=== PATIENT | female | born 1975 | race Caucasian/White ===

== ENCOUNTER 2016-07-29 07:11 | Emergency (ER) | payer OTHER ==
[2016-07-29] MEDS ORDERED: Morphine INJ* 2 MG/ML 1 ML SYRINGE IV ONE (07:52)
[2016-07-29] MEDS ORDERED: NS 0.9% 1000 ML* 1,000 ML IV ONE (07:52)
[2016-07-29] MEDS ORDERED: Ondansetron INJ* 2 MG/ML VIAL IV ONE (07:52)
[2016-07-29 08:29] LABS: Hematocrit 39 % (35-47); Hemoglobin 12.9 g/dl (12.0-16.0); Mean Corpuscular HGB Conc 33 g/dl (31-36); Mean Corpuscular Hemoglobin 31 pg (27-31); Mean Corpuscular Volume 93 fL (80-97); Mean Platelet Volume 9 um3 (7.4-10.4); Red Blood Count 4.22 10^6/ul (4.0-5.4); Red Cell Distribution Width 13 % (10.5-15); White Blood Count 7.9 10^3/ul (3.5-10.8)
[2016-07-29 08:37] LABS: ALT 19 U/L (7-52); AST 21 U/L (13-39); Albumin 4.2 g/dL (3.2-5.2); Alkaline Phosphatase 37 U/L (34-104); Amylase 42 U/L (29-103); Anion Gap 7 mmol/L (2-11); BUN/Creatinine Ratio 16.5 (8-20); Blood Urea Nitrogen 16 mg/dL (6-24); C Reactive Protein 1.62 mg/L (< 5.00); CO2 Carbon Dioxide 22 mmol/L (22-32); Calcium 9.6 mg/dL (8.6-10.3); Chloride 107 mmol/L (101-111); EGFR African American 81.8 (>60); EGFR Non-African American 63.6 (>60); Globulin 2.7 g/dL (2-4); Glucose 113 mg/dL (70-100); Lipase 18 U/L (11.0-82.0); Magnesium 1.9 mg/dL (1.9-2.7); Potassium 4.3 mmol/L (3.5-5.0); Sodium 136 mmol/L (133-145); Total Protein 6.9 g/dL (6.4-8.9)
[2016-07-29] MEDS ORDERED: Morphine INJ* 4 MG/ML 1 ML SYRINGE IV ONE (08:57)
[2016-07-29] MEDS ORDERED: Iohexol 300* (CONTRAST) 10 ML SDV IV ONE (09:12)
[2016-07-29 10:06] LABS: Urine Bacteria Absent (Absent); Urine Bilirubin Negative (Negative); Urine Glucose Negative (Negative); Urine Nitrite Negative (Negative)
[2016-07-29] MEDS ORDERED: Ketorolac INJ* 30 MG/ML 1 ML VIAL IV PUSH ONE (10:17)
[2016-07-29] MEDS ORDERED: Ketorolac INJ* 30 MG/ML 1 ML VIAL ONE (10:19)
--- NOTE | 2016-07-29 10:34 | RAD ---
CLINICAL HISTORY: Right lower quadrant pain COMPARISON: July 21, 2011 TECHNIQUE: Multiple contiguous axial CT scans were obtained of the abdomen and pelvis after the administration of intravenous contrast. Coronal and sagittal multiplanar reformations are submitted for review. FINDINGS: LUNG BASES: The lung bases are clear. LIVER: The liver is diffusely low in attenuation compared to the spleen. There are no focal hepatic parenchymal masses. The liver measures 21 cm in long axis. BILE DUCTS: There is ectasia of the common duct. There is no intrahepatic biliary dilatation. GALLBLADDER: The gallbladder is not visualized. Surgical clips are noted in the gallbladder fossa. PANCREAS: The pancreas is normal, without mass or ductal dilatation. SPLEEN: Normal in size and appearance. UPPER GI TRACT: Evaluation of the gastrointestinal tract is limited by incomplete gastric distention. The upper GI tract is unremarkable. SMALL BOWEL AND MESENTERY: The small bowel is normal in contour, course, and caliber. There is no obstruction or dilatation. COLON: The colon is normal in contour, course, caliber. There is no pericolonic inflammatory change. There is a tubular, vermiform, hollow viscus that is blind ending, and originates from the cecum, consistent with a normal appendix. There is no periappendiceal inflammatory change. This is best seen on axial images 93 through 120. ADRENALS: Normal bilaterally. KIDNEYS: The kidneys are normal in shape, size, contour, and axis. There is no hydronephrosis or nephrolithiasis. BLADDER: The bladder is smooth in contour. PELVIC ORGANS: There is a 7 cm cyst of the right hemipelvis measuring simple fluid in attenuation. This is persistent from the July 21, 2011 examination. There is prominence of the vasculature along the broad ligament on the left with enlargement of the left compatible vein. There is focal enhancement of the uterine body on the left suggestive of a fibroid. AORTA: The aorta is normal. IVC: Unremarkable LYMPH NODES: There is no lymphadenopathy by size criteria. ABDOMINAL WALL: There is no evidence for abdominal wall hernia. BONES AND SOFT TISSUES: The bones and soft tissues are unremarkable. OTHER: None IMPRESSION: 1. NORMAL APPENDIX. 2. 7 CM CYST OF THE RIGHT HEMIPELVIS. THIS IS PERSISTENT FROM THE 2011 EXAMINATION. GIVEN THE PERSISTENCE, A CYSTADENOMA OR CYSTADENOCARCINOMA IS WITHIN THE DIFFERENTIAL. RECOMMEND CONSIDERATION OF GYNECOLOGIC CONSULTATION AND TISSUE SAMPLING. 3. HEPATOMEGALY WITH FATTY INFILTRATION OF LIVER. 4. DILATED LEFT GONADAL VEINS WITH INCREASED VASCULARITY ALONG THE BROAD LIGAMENT ON THE LEFT. WHILE THIS NONSPECIFIC, THIS CAN BE SEEN IN ASSOCIATION WITH PELVIC CONGESTION SYNDROME.
--- NOTE | 2016-07-29 12:10 | RAD ---
HISTORY: Right lower quadrant pain COMPARISONS: Ultrasound dated May 21, 2015, CT dated July 29, 2016 TECHNIQUE: Multiple transverse and longitudinal ultrasound images were obtained of the pelvis using grayscale, color Doppler, and spectral Doppler imaging using the transabdominal transducer. FINDINGS: UTERUS: The uterus measures 10.9 x 3.8 x 5.5 cm. There is a fibroid of the posterior body of the left corresponding to the lesion noted on CT, measuring 1.8 cm in maximum dimension. ENDOMETRIUM: The endometrial stripe is smooth. The endometrium measures 0.4 cm in thickness. CUL-DE-SAC: There is no free fluid within the cul-de-sac. RIGHT OVARY: The right ovary measures 9.5 x 4.9 x 6.5 cm. There is a multiseptated cyst of the right ovary measuring 6.6 x 4.6 x 5.5, increased in size from 5.2 cm on the previous examination. ] A moderate flow LEFT OVARY: The left ovary measures 3.1 x 1.8 x 2.6 cm. Normal arterial and venous waveforms are identifiable within the ovary on spectral Doppler imaging. BLADDER: The bladder is not well visualized. IMPRESSION: 1. FIBROID UTERUS. 2. NOTED ON CT, THERE IS A COMPLICATED CYST OF THE RIGHT OVARY, MEASURING UP TO 6.6 CM IN SIZE, INCREASED SIZE FROM THE MAY 21, 2015 ULTRASOUND EXAMINATION AND PERSISTENT FROM PREVIOUS CT EXAMINATIONS FAR BACK 2011. RECOMMEND CONSIDERATION OF THE PEDICLES CONSULTATION AND POSSIBLE TISSUE SAMPLING
--- NOTE | 2016-07-29 12:46 | ED ---
Kathia Murguia SooYoung, scribed for Juan Daniel Szymanski MD on 07/29/16 at 0722 . Abdominal Pain/Female - HPI Summary HPI Summary: A 41 y/o F presents to ED with c/o acute RLQ abd pain onset yesterday afternoon approx 1700. Associated sx: n/v. Denies fever, chills. Pain is sharp, non- radiating, and rated as an 8-9 out of 10. LNMP: currently menstruating. Pt has a known R ovarian cyst but states it doesn't feel like that's the cause. She's had similar sx prev but it always faded after about an hour before. Currently taking amoxicillin for a tooth infection. Pt is a non-smoker, non-drinker, non- drug user. - History of Current Complaint Chief Complaint: EDAbdPain Stated Complaint: LOWER RT ABD PAIN Hx Obtained From: Patient, Family/Active Directory Specialist - PRESENT Onset/Duration: Sudden Onset, Lasting Hours, Still Present Timing: Constant Severity Initially: Moderate Severity Currently: Severe Pain Intensity: 8 Pain Scale Used: 0-10 Numeric Location: Discrete At: RLQ Radiates: No Character: Sharp Associated Signs and Symptoms: Positive: Nausea, Vomiting. Negative: Fever Allergies/Adverse Reactions: Allergies Allergy/AdvReac Type Severity Reaction Status Date / Time Ciprofloxacin Allergy Nausea Verified 03/18/16 09:59 Clavulanic Acid Allergy Nausea Verified 03/18/16 09:59 [From Augmentin] PMH/Surg Hx/FS Hx/Imm Hx Previously Healthy: No History: Reports: Other Problems/Disorders - OVARIAN CYST, UTERINE FIBROIDS - Surgical History Surgery Procedure, Year, and Place: CHOLECYSTECTOMY Infectious Disease History: No Infectious Disease History: Denies: Traveled Outside the [place] in Last 30 Days - Family History Known Family History: Positive: Other - APPY - Social History Occupation: Employed Full-time Lives: With Family Alcohol Use: None Hx Substance Use: No Substance Use Type: Reports: None Hx Tobacco Use: No Smoking Status (MU): Never Smoked Tobacco Review of Systems Negative: Fever, Chills Positive: Abdominal Pain, Vomiting, Nausea All Other Systems Reviewed And Are Negative: Yes Physical Exam - Summary Physical Exam Summary: VITAL SIGNS: Reviewed. GENERAL: Patient is a well-developed and nourished female who is lying comfortable in the stretcher. Patient is not in any acute respiratory distress. HEAD AND FACE: Normocephalic and atraumatic. EYES: PERRLA, EOMI x 2, No injected conjunctiva. EARS: Hearing grossly intact. Ear canals and tympanic membranes are WNL. MOUTH: Oropharynx within normal limits. NECK: Supple, trachea is midline, no adenopathy, no JVD. CHEST: Symmetric, no tenderness at palpation LUNGS: Clear to auscultation bilaterally. No wheezing or crackles. CVS: RRR, S1 and S2 present, no murmurs or gallops appreciated. ABDOMEN: Soft. No signs of distention. Positive bowel sounds. No rebound, no guarding, and no masses palpated. No abdominal bruit or pulsations. RLQ TENDERNESS. EXTREMITIES: FROM in all major joints, no edema, no cyanosis or clubbing. NEURO: Alert and oriented x 3. No acute neurological deficits. Speech is normal. SKIN: Dry and warm Triage Information Reviewed: Yes Vital Signs On Initial Exam: Initial Vitals Temp Pulse Resp BP Pulse Ox 97.9 F 62 16 167/83 100 07/29/16 07:12 07/29/16 07:12 07/29/16 07:12 07/29/16 07:12 07/29/16 07:12 Vital Signs Reviewed: Yes Diagnostics - Vital Signs Vital Signs Temp Pulse Resp BP Pulse Ox 07/29/16 07:12 97.9 F 60 16 167/83 100 - Laboratory Lab Results: Lab Results 07/29/16 07/29/16 07/29/16 Range/Units 08:08 08:08 08:08 WBC 7.9 (3.5-10.8) 10^3/ul RBC 4.22 (4.0-5.4) 10^6/ul Hgb 12.9 (12.0-16.0) g/dl Hct 39 (35-47) % MCV 93 (80-97) fL MCH 31 (27-31) pg MCHC 33 (31-36) g/dl RDW 13 (10.5-15) % Plt Count 181 (150-450) 10^3/ul MPV 9 (7.4-10.4) um3 Neut % (Auto) 77.1 (38-83) % Lymph % (Auto) 15.7 L (25-47) % Stafford % (Auto) 6.3 (1-9) % Eos % (Auto) 0.4 (0-6) % Baso % (Auto) 0.5 (0-2) % Absolute Neuts (auto) 6.1 (1.5-7.7) 10^3/ul Absolute Lymphs (auto) 1.2 (1.0-4.8) 10^3/ul Absolute Monos (auto) 0.5 (0-0.8) 10^3/ul Absolute Eos (auto) 0 (0-0.6) 10^3/ul Absolute Basos (auto) 0 (0-0.2) 10^3/ul Absolute Nucleated RBC 0.01 10^3/ul Nucleated RBC % 0.1 Sodium 136 (133-145) mmol/L Potassium 4.3 (3.5-5.0) mmol/L Chloride 107 (101-111) mmol/L Carbon Dioxide 22 (22-32) mmol/L Anion Gap 7 (2-11) mmol/L BUN 16 (6-24) mg/dL Creatinine 0.97 H (0.51-0.95) mg/dL Est GFR ( Amer) 81.8 (>60) Est GFR (Non-Af Amer) 63.6 (>60) BUN/Creatinine Ratio 16.5 (8-20) Glucose 113 H (70-100) mg/dL Lactic Acid 1.2 (0.5-2.0) mmol/L Calcium 9.6 (8.6-10.3) mg/dL Magnesium 1.9 (1.9-2.7) mg/dL Total Bilirubin 0.40 (0.2-1.0) mg/dL AST 21 (13-39) U/L ALT 19 (7-52) U/L Alkaline Phosphatase 37 (34-104) U/L C-Reactive Protein 1.62 (< 5.00) mg/L Total Protein 6.9 (6.4-8.9) g/dL Albumin 4.2 (3.2-5.2) g/dL Globulin 2.7 (2-4) g/dL Albumin/Globulin Ratio 1.6 (1-3) Amylase 42 (29-103) U/L Lipase 18 (11.0-82.0) U/L Beta HCG, Quant < 0.60 mIU/mL Urine Color Urine Appearance Urine pH (5-9) Ur Specific [place] (1.010-1.030) Urine Protein (Negative) Urine Ketones (Negative) Urine Blood (Negative) Urine Nitrate (Negative) Urine Bilirubin (Negative) Urine Urobilinogen (Negative) Ur Leukocyte Esterase (Negative) Urine WBC (Auto) (Absent) Urine RBC (Auto) (Absent) Urine Bacteria (Absent) Urine Glucose (Negative) Urine Ascorbic Acid (Negative) 07/29/16 Range/Units 09:39 WBC (3.5-10.8) 10^3/ul RBC (4.0-5.4) 10^6/ul Hgb (12.0-16.0) g/dl Hct (35-47) % MCV (80-97) fL MCH (27-31) pg MCHC (31-36) g/dl RDW (10.5-15) % Plt Count (150-450) 10^3/ul MPV (7.4-10.4) um3 Neut % (Auto) (38-83) % Lymph % (Auto) (25-47) % Stafford % (Auto) (1-9) % Eos % (Auto) (0-6) % Baso % (Auto) (0-2) % Absolute Neuts (auto) (1.5-7.7) 10^3/ul Absolute Lymphs (auto) (1.0-4.8) 10^3/ul Absolute Monos (auto) (0-0.8) 10^3/ul Absolute Eos (auto) (0-0.6) 10^3/ul Absolute Basos (auto) (0-0.2) 10^3/ul Absolute Nucleated RBC 10^3/ul Nucleated RBC % Sodium (133-145) mmol/L Potassium (3.5-5.0) mmol/L Chloride (101-111) mmol/L Carbon Dioxide (22-32) mmol/L Anion Gap (2-11) mmol/L BUN (6-24) mg/dL Creatinine (0.51-0.95) mg/dL Est GFR ( Amer) (>60) Est GFR (Non-Af Amer) (>60) BUN/Creatinine Ratio (8-20) Glucose (70-100) mg/dL Lactic Acid (0.5-2.0) mmol/L Calcium (8.6-10.3) mg/dL Magnesium (1.9-2.7) mg/dL Total Bilirubin (0.2-1.0) mg/dL AST (13-39) U/L ALT (7-52) U/L Alkaline Phosphatase (34-104) U/L C-Reactive Protein (< 5.00) mg/L Total Protein (6.4-8.9) g/dL Albumin (3.2-5.2) g/dL Globulin (2-4) g/dL Albumin/Globulin Ratio (1-3) Amylase (29-103) U/L Lipase (11.0-82.0) U/L Beta HCG, Quant mIU/mL Urine Color Yellow Urine Appearance Clear Urine pH 5.0 (5-9) Ur Specific [place] 1.013 (1.010-1.030) Urine Protein Negative (Negative) Urine Ketones Trace H (Negative) Urine Blood 1+ H (Negative) Urine Nitrate Negative (Negative) Urine Bilirubin Negative (Negative) Urine Urobilinogen Negative (Negative) Ur Leukocyte Esterase Negative (Negative) Urine WBC (Auto) Trace(0-5/hpf) (Absent) Urine RBC (Auto) 2+(6-10/hpf) H (Absent) Urine Bacteria Absent (Absent) Urine Glucose Negative (Negative) Urine Ascorbic Acid * H (Negative) Result Diagrams: 07/29/16 08:08 07/29/16 08:08 Lab Statement: Any lab studies that have been ordered have been reviewed, and results considered in the medical decision making process. - CT A/P CT CT Interpretation: Positive (See Comments) - IMPRESSION: 1. NORMAL APPENDIX. 2. 7 CM CYST OF THE RIGHT HEMIPELVIS. THIS IS PERSISTENT FROM THE 2012 EXAMINATION. GIVEN THE PERSISTENCE, A CYSTADENOMA OR CYSTADENOCARCINOMA IS WITHIN THE DIFFERENTIAL. RECOMMEND CONSIDERATION OF GYNECOLOGIC CONSULTATION AND TISSUE SAMPLING. 3. HEPATOMEGALY WITH FATTY INFILTRATION OF LIVER. 4. DILATED LEFT GONADAL VEINS WITH INCREASED VASCULARITY ALONG THE BROAD LIGAMENT ON THE LEFT. WHILE THIS NONSPECIFIC, THIS CAN BE SEEN IN ASSOCIATION WITH PELVIC CONGESTION SYNDROME. CT Interpretation Completed By: Radiologist - Ultrasound No standard instances Ultrasound Interpretation: Positive (See Comments) - IMPRESSION: 1. FIBROID UTERUS. 2. NOTED ON CT, THERE IS A COMPLICATED CYST OF THE RIGHT OVARY, MEASURING UP TO 6.6 CM IN SIZE, INCREASED SIZE FROM THE MAY 21, 2015 ULTRASOUND EXAMINATION AND PERSISTENT FROM PREVIOUS CT EXAMINATIONS FAR BACK 2012. RECOMMEND CONSIDERATION OF THE PEDICLES CONSULTATION AND POSSIBLE TISSUE SAMPLING Ultrasound Interpretation Completed By: Radiologist Re-Evaluation - Re-Evaluation 1 Re-Evaluation Time: 08:56 Change: Improved - mildly, still has pain Comment: Discussing lab results with pt. Abdominal Pain Fem Course/Dx - Course Course Of Treatment: In the ED course an IV access was obtained. Patient was placed in a ekg monitor tech. Patient was started with IV fluids. She was given Zofran and Morphine for the pain. Labs within normal limits except for increase glucose of 113. Abdominal and pelvic CT to r/o appendicitis impression: IMPRESSION: 1. NORMAL APPENDIX. 2. 7 CM CYST OF THE RIGHT HEMIPELVIS. THIS IS PERSISTENT FROM THE 2012 EXAMINATION. GIVEN THE PERSISTENCE , A CYSTADENOMA OR CYSTADENOCARCINOMA IS WITHIN THE DIFFERENTIAL. RECOMMEND. CONSIDERATION OF GYNECOLOGIC CONSULTATION AND TISSUE SAMPLING. 3. HEPATOMEGALY WITH FATTY INFILTRATION OF LIVER. 4. DILATED LEFT GONADAL VEINS WITH INCREASED VASCULARITY ALONG THE BROAD LIGAMENT ON THE LEFT. WHILE THIS NONSPECIFIC, THIS CAN BE SEEN IN ASSOCIATION WITH PELVIC CONGESTION SYNDROME. At this time I decided to do a Pelvic U/S to t/o ovarian torsion. Pelvic U/S: IMPRESSION: 1. NORMAL APPENDIX. 2. 7 CM CYST OF THE RIGHT HEMIPELVIS. THIS IS PERSISTENT FROM THE 2012 EXAMINATION. GIVEN THE PERSISTENCE, A CYSTADENOMA OR CYSTADENOCARCINOMA IS WITHIN THE DIFFERENTIAL. RECOMMEND. CONSIDERATION OF GYNECOLOGIC CONSULTATION AND TISSUE SAMPLING. 3. HEPATOMEGALY WITH FATTY INFILTRATION OF LIVER. 4. DILATED LEFT GONADAL VEINS WITH INCREASED VASCULARITY ALONG THE BROAD LIGAMENT ON THE LEFT. WHILE THIS NONSPECIFIC, THIS CAN BE SEEN IN ASSOCIATION WITH PELVIC CONGESTION SYNDROME. I discussed the case with Dr. Lind (DRAMA TEACHER) he will see this patient in the next couple days. She will be given Naproxen and Rolla for pain. In the Ed course Patient still with pain therefore she was given the second dose of Morphine. Now she is more comfortable. She was also given Toradol and her symptoms significantly improved. I discussed all the findings and test results with the patient. Patient was instructed to return to the emergency room immediately if any of the symptoms return or worsens. Plan of care was discussed with the patient and understands and agrees. All questions were answered at patient satisfaction. There were no further complaints or concerns. Lung exam before discharge: CTA B /L. Good air exchange. No wheezing or crackles heard. CVS: S1 and S2 present. No murmurs appreciated. Patient is alert and oriented x 3. Patient is hemodynamically stable. Patient will be discharged home with follow up PCP in the next 2-3 days - Diagnoses Differential Diagnosis: Positive: Appendicitis, Constipation, Diverticulitis, Ovarian Cyst, Renal Colic, Urinary Tract Infection Provider Diagnoses: Ovarian cyst - Provider Notifications Discussed Care Of Patient With: Izabel Lind Time Discussed With Above Provider: 12:34 Instructed by Provider To: Have Pt Call For Appt. Discharge - Discharge Plan Condition: Stable Disposition: HOME Prescriptions: HYDROcodone/ACETAMIN 5-325 MG* [Rolla 5-325 TAB*] 1 tab PO Q6H PRN #10 tab MDD 4 tabs / day PRN Reason: Pain Naproxen TAB* [Naprosyn 250 mg TAB*] 500 mg PO Q8H PRN #20 tab PRN Reason: Pain Patient Education Materials: Hydrocodone/Acetaminophen (By mouth), Naproxen ( By mouth), Ovarian Cyst (ED) Referrals: Jimmy Armstrong MD [Primary Care Provider] - Izabel Lind MD [Medical Doctor] - As Soon As Possible (Call the office to schedule an appt.) Additional Instructions: Follow up with GERSON Zimmerman. Please return to the ED with new or worsening symptoms. The documentation as recorded by the Kathia anna SooYoung accurately reflects the service I personally performed and the decisions made by , Juan Daniel Szymanski MD.
[2016-07-29 13:17] VITALS: BP 119/75
== END 2016-07-29 13:15 | disposition home or self-care (01) ==
LOC: ED 07:11
DX: N83.201 Unspecified ovarian cyst, right side (principal); D25.9 Leiomyoma of uterus, unspecified; R11.2 Nausea with vomiting, unspecified; Z32.02 Encounter for pregnancy test, result negative; Z90.49 Acquired absence of other specified parts of digestive tract; Z88.1 Allergy status to other antibiotic agents
CPT/HCPCS: 36415; 74177; 76856; 80053; 81003; 81015; 82150; 83605; 83690; 83735; 84702; 85025; 86140; 96361; 96374; 96375; 96376; 99283; J1885; J2270; J2405; Q9967

== ENCOUNTER 2016-09-25 08:41 | Day surgery (SDC) | payer OTHER ==
[~2016-09-25 08:41] MED LIST: Buffered Lidocaine 0.9% SYRIN* 5 ML/SYR SYRINGE INTRADERM ONE
[2016-09-25] MEDS ORDERED: ceFOXitin 2 GM IVPREMIX* 2 GM/50 ML BAG ONE (09:13)
[2016-09-25 09:15] LABS: Hematocrit 38 % (35-47); Hemoglobin 12.7 g/dl (12.0-16.0); Mean Corpuscular HGB Conc 33 g/dl (31-36); Mean Corpuscular Hemoglobin 30 pg (27-31); Mean Corpuscular Volume 90 fL (80-97); Mean Platelet Volume 8 um3 (7.4-10.4); Red Blood Count 4.26 10^6/ul (4.0-5.4); Red Cell Distribution Width 13 % (10.5-15)
[2016-09-25] MEDS ORDERED: fentaNYL* 50 MCG/ML 2 ML VIAL (100 MCG VIAL) ONE ×2 (09:27→11:37)
[2016-09-25] MEDS ORDERED: Midazolam* 1 MG/ML 2 ML VIAL (2 MG) ONE ×2 (09:28→10:15)
[2016-09-25 09:30] LABS: ALT 18 U/L (7-52); Alkaline Phosphatase 34 U/L (34-104); BUN/Creatinine Ratio 17.5 (8-20); Blood Urea Nitrogen 14 mg/dL (6-24); CO2 Carbon Dioxide 23 mmol/L (22-32); Calcium 9.1 mg/dL (8.6-10.3); Chloride 107 mmol/L (101-111); EGFR African American 102.2 (>60); EGFR Non-African American 79.4 (>60); Globulin 2.9 g/dL (2-4); Glucose 99 mg/dL (70-100); Sodium 137 mmol/L (133-145); Total Protein 6.9 g/dL (6.4-8.9)
[2016-09-25 09:38] LABS: Anion Gap 7 mmol/L (2-11)
[2016-09-25] MEDS ORDERED: Bupivacaine 0.5% W/EPI SDV* 10 ML VIAL INJ ONE (09:53)
[2016-09-25] MEDS ORDERED: Cisatracurium* 2 MG/ML MDV 5 ML ONE (10:21)
[2016-09-25] MEDS ORDERED: Scopolamine 1.5 mg* PATCH TRANSDERM PRN (11:00)
[2016-09-25] MEDS ORDERED: Ondansetron INJ* 2 MG/ML VIAL IV PRN (11:00)
[2016-09-25] MEDS ORDERED: PROCHLORPERAZINE INJ 5 MG/ML 2 ML VIAL IV PRN (11:00)
[2016-09-25] MEDS ORDERED: HYDROmorphone* 1 MG/ML 1 ML SYR IV PRN (11:00)
[2016-09-25] MEDS ORDERED: DiMENhydriNATE IV* 50 MG/ML VIAL IV PUSH PRN (11:00)
[2016-09-25] MEDS ORDERED: HYDROcodone/ACETAMIN 5-325 MG* 1 TAB PO PRN (11:00)
[2016-09-25] MEDS ORDERED: Acetaminophen TAB* 325 MG PO PRN (11:00)
[2016-09-25] MEDS ORDERED: Succinylcholine* 20 MG/ML 10 ML VIAL ONE (11:01)
[2016-09-25] MEDS ORDERED: Famotidine IV* 10 MG/ML 2 ML (20 mg) ONE (11:01)
[2016-09-25] MEDS ORDERED: Propofol* 10 MG/ML 20 ML BTL IV PUSH ONE (11:01)
[2016-09-25] MEDS ORDERED: Ketorolac INJ* 30 MG/ML 1 ML VIAL ONE (11:01)
[2016-09-25] MEDS ORDERED: Lidocaine 2% PF * 5 ML VIAL ONE (11:01)
[2016-09-25] MEDS ORDERED: Ondansetron INJ* 2 MG/ML VIAL ONE (11:01)
[2016-09-25] MEDS ORDERED: Dexamethasone IV* 4 MG/ML 1 ML (4 MG) ONE (11:01)
[2016-09-25] MEDS ORDERED: DiMENhydriNATE IV* 50 MG/ML VIAL ONE (11:37)
[2016-09-25] MEDS ORDERED: Scopolamine 1.5 mg* PATCH ONE (11:38)
[2016-09-25] MEDS: fentaNYL* 50 MCG/ML 2 ML VIAL (100 MCG VIAL) IV PRN ×2 (11:44→12:13)
[2016-09-25] MEDS ORDERED: HYDROcodone/ACETAMIN 5-325 MG* 1 TAB ONE (12:00)
[2016-09-25 12:46] VITALS: BP 113/50
--- NOTE | 2016-09-26 04:01 | OP ---
OPERATIVE REPORT: DATE OF OPERATION: 09/25/16 DATE OF : 77 SURGEON: Shelbie De Oliveira MD. HOT BLAST WORKER: Armin Espino MD. ANESTHESIOLOGIST: Dr. Lezama. ANESTHESIA: General endotracheal with local. PRE-OP DIAGNOSIS: Right ovarian mass. POST-OP DIAGNOSIS: Right adnexal mass. OPERATIVE PROCEDURE: Laparoscopic right salpingectomy. ESTIMATED BLOOD LOSS: Minimal. URINE OUTPUT: 100 mL of clear yellow urine. FLUIDS: 900 mL of crystalloid. FINDINGS: Revealed liver edge, normal-appearing bowel, normal-appearing appendix, normal-appearing uterus, normal right and left ovary. Right distal end of tube with torsion, and adnexal mass. Smal l omental adhesions noted in the right lateral abdominal wall. COMPLICATIONS: None apparent. DISPOSITION: Stable, to recovery room. DESCRIPTION OF PROCEDURE: The patient was placed in dorsal lithotomy position. Legs were placed in [place] Keenan stirrups. The abdomen and vagina were prepped and draped in a sterile standard f ashion. The patient was identified with universal protocol for correct procedure, patient, and posi tion. A Self-Cath was then used to drain the bladder for 100 cc of clear yellow urine. Self-Cath w as removed. Sterile speculum was inserted. Cervix was visualized. A Hulka clamp was placed to all ow manipulation of the uterus. Sterile speculum was then removed. Attention was then focused on the abdominal portion of the case. The umbilical area was infused with 8 mL of 0.25% Marcaine with epi and a scalpel was used to incise the skin. Fascia was identified, grasped with Fito's and incise d using Metzenbaum scissors. Peritoneum was then entered sharply. The 10-mm Harvey port was then i nserted. Scope confirmed excellent placement of the Harvey trocar and pneumoperitoneum was then cre ated. The uterus was visualized and the findings were noted as follows. Normal liver edge, normal- appearing bowel, scant adhesions of the omentum to the right lateral abdominal wall, not affecting o perative site or field. The uterus was noted to be without lesions. The anterior and posterior per itoneum reflections were noted to have no evidence of endometriosis. The left and right ovary had n ormal appearance. There was minimal amount in the distal portion of the left tube. The distal port ion of the right tube involved this adnexal mass that had evidence of torsion x2, occupying the post erior cul-de-sac, noted to be approximately 7 cm in size. At that point, a decision was made to put in a 5-mm port, midline, suprapubic. The area was infused with 3 mL of 0.25% Marcaine with epi, in cision was made with scalpel, and a 5-mm trocar and trocar sheath were inserted under direct visuali zation. A blunt instrument was used to elevate the right distal tube mass. The torsion was reduced . The pedicle was identified. LigaSure was then applied across the pedicle for complete excision o f the adnexal mass. The 5-mm scope was then inserted through the 5-mm trocar site. A 10-mm EndoCatc h bag was then placed through the 10-mm port. The adnexal mass was retrieved through the 10-mm port , through the EndoCatch bag. The specimen was brought to the surface in the bag. The specimen was drained with syringe until the specimen easily was removed through the umbilical port, intact. The 10-mm Harvey port was then replaced, 10-mm scope was then inserted. The pedicle was noted to be hem ostatic. There was no blood in the intraabdominal cavity noted. No irrigation was required. The 5 -mm suprapubic port was then removed and the 10-mm Harvey port was then removed under direct visuali zation after release of the pneumoperitoneum. The 5 mm suprapubic port site was reapproximated using 4-0 Monocryl in subcuticular fashion. The umbilical port site was reapproximated using 0 Biosyn in a running fashion for complete occlusion of the umbilical fascia. The skin was reapproximated on b oth sites with 4-0 Monocryl in subcuticular fashion. Mastisol and Steri's were applied on both site s. The Hulka clamp was removed. The patient was returned to dorsal supine position and then extuba luiz and taken to recovery room in stable condition. All sponge, instrument, and blade counts were c orrect throughout the case. The patient tolerated the procedure well and went to the recovery room in stable condition. [id number]/[facility] #: [id number]
[2016-09-28] MEDS ORDERED: Scopolomine PATCH Remove* 1 NOTE MISC PATCH OFF ONE (11:01)
== END 2016-09-25 13:37 | disposition home or self-care (01) ==
LOC: OR 08:41
PROVIDERS: ATTEND Obstetrics & Gynecology
DX: D28.2 Benign neoplasm of uterine tubes and ligaments (principal); Z87.891 Personal history of nicotine dependence
CPT/HCPCS: 36415; 80053; 81025; 85025; 86850; 86900; 86901; 88305; A9270-GY; J0330; J0694; J1100; J1240; J1885; J2250; J2405; J2704; J3010

== ENCOUNTER 2018-09-02 22:50 | Emergency (ER) | payer OTHER ==
--- NOTE | 2018-09-03 00:11 | ED ---
Influenza-Like Illness - HPI Summary HPI Summary: 43-year-old female presents with complaints of 56 day history of nasal congestion, sinus pressure, sore throat, and a dry nonproductive cough. States today she developed left eye erythema, itching, and purulent discharge. States has been sick with similar symptoms. Denies fever, chills, ear pain, dysphagia, chest pain, shortness of breath, abdominal pain, nausea, vomiting, or diarrhea. - History of Current Complaint Chief Complaint: EDGeneral Time Seen by Provider: 09/02/18 23:28 Hx Obtained From: Patient - Allergy/Home Medications Allergies/Adverse Reactions: Allergies Allergy/AdvReac Type Severity Reaction Status Date / Time No Known Allergies Allergy Verified 09/02/18 23:41 PMH/Surg Hx/FS Hx/Imm Hx Endocrine/Hematology History: Denies: Hx Diabetes Cardiovascular History: Denies: Hx Hypertension GI History: Reports: Other GI Disorders - ulcerative colitis History: Reports: Hx Kidney Stones - 6 years ago, Other Problems/ Disorders - OVARIAN CYST, UTERINE FIBROIDS, endometreosis Sensory History: Denies: Hx Contacts or Glasses, Hx Hearing Aid Opthamlomology History: Denies: Hx Contacts or Glasses Psychiatric History: Reports: Hx Anxiety - slight at times - Cancer History Hx Chemotherapy: No Hx Radiation Therapy: No - Surgical History Surgical History: Yes Surgery Procedure, Year, and Place: CHOLECYSTECTOMY. tubal ligation bilat 15 years ago Hx Anesthesia Reactions: No - Immunization History Date of Tetanus Vaccine: UTD Infectious Disease History: No Infectious Disease History: Denies: Traveled Outside the [place] in Last 30 Days - Family History Known Family History: Positive: Non-Contributory - Social History Occupation: Employed Full-time Lives: With Family Alcohol Use: Rare Hx Substance Use: No Substance Use Type: Reports: None Hx Tobacco Use: No Smoking Status (MU): Former Smoker Amount Used/How Often: smoked for 16 years , 1/2 ppd Review of Systems Negative: Fever, Chills Positive: Drainage, Erythema Positive: Sore Throat, Nasal Discharge. Negative: Ear Ache Negative: Palpitations, Chest Pain Positive: Cough. Negative: Shortness Of Breath Negative: Abdominal Pain, Vomiting, Diarrhea, Nausea Genitourinary: Negative Musculoskeletal: Negative Skin: Negative Neurological: Negative All Other Systems Reviewed And Are Negative: Yes Physical Exam - Summary Physical Exam Summary: GENERAL APPEARANCE: Well developed, well nourished, alert and cooperative, and appears to be in no acute distress. EYES: Left eye with conjunctival erythema and purulent drainage. Right eye normal. EARS: External auditory canals and tympanic membranes clear, hearing grossly intact. NOSE: Moderate nasal congestion with mucosal erythema and edema. No nasal discharge. Maxillary sinus tenderness, more pronounced over the left. THROAT: Pharyngeal erythema without tonsilar inflammation, swelling, exudate, or lesions. Uvula midline. Oral cavity normal. Teeth and gingiva in good general condition. NECK: Neck supple, non-tender without lymphadenopathy. CARDIAC: Normal S1 and S2. No S3, S4 or murmurs. Rhythm is regular. There is no peripheral edema, cyanosis or pallor. Extremities are warm and well perfused. Capillary refill is less than 2 seconds. Peripheral pulses intact. LUNGS: Clear to auscultation without rales, rhonchi, wheezing or diminished breath sounds. ABDOMEN: Positive bowel sounds. Soft, nondistended, nontender. No guarding or rebound. No masses or hepatosplenomegally. MUSKULOSKELETAL: ROM intact to all extremities. No joint erythema or tenderness. Normal muscular development. Normal gait. SKIN: Skin normal color, texture and turgor with no lesions or eruptions. Triage Information Reviewed: Yes Vital Signs On Initial Exam: Initial Vitals Temp Pulse Resp BP Pulse Ox 97.6 F 77 18 135/87 97 09/02/18 22:58 09/02/18 22:58 09/02/18 22:58 09/02/18 22:58 09/02/18 22:58 Vital Signs Reviewed: Yes Diagnostics - Vital Signs Vital Signs Temp Pulse Resp BP Pulse Ox 09/02/18 22:58 97.6 F 77 18 135/87 97 - Laboratory Lab Statement: Any lab studies that have been ordered have been reviewed, and results considered in the medical decision making process. Flu Symptom Course/Dx - Course Course Of Treatment: 43-year-old female presents with complaints of 56 day history of nasal congestion, sinus pressure, sore throat, and a dry nonproductive cough. States today she developed left eye erythema, itching, and purulent discharge. States she has been using saline rinses, fluticasone nasal spray, and ibuprofen at home with minimal relief in symptoms. States has been sick with similar symptoms. Denies fever, chills, ear pain, dysphagia, chest pain, shortness of breath, abdominal pain, nausea, vomiting, or diarrhea. Afebrile. Mildly hypertensive otherwise vital signs stable. Exam revealed left eye conjunctival erythema with purulent discharge, moderate nasal congestion with mucosal erythema and edema, maxillary sinus tenderness that was more pronounced on the left, pharyngeal erythema, no cervical lymphadenopathy, dry nonproductive cough, and otherwise unremarkable exam. Patient's exam is consistent with a bacterial sinusitis with secondary left conjunctivitis. Recommending treatment with doxycycline 100 mg twice a day 7 days as well as symptomatic treatment. She was given first dose of antibiotic in the emergency room. She is to follow-up with her primary care provider in 3-5 days if symptoms are not improving. Anticipatory guidance warning symptoms were reviewed with the patient. Verbalizes understanding and agrees with plan of care. - Diagnoses Differential Diagnosis/HQI/PQRI: Positive: Bronchitis, Influenza, Pneumonia, Upper Respiratory Infection Provider Diagnoses: Sinusitis, bacterial, Conjunctivitis, left eye Discharge - Sign-Out/Discharge Documenting (check all that apply): Patient Departure Patient Received Moderate/Deep Sedation with Procedure: No - Discharge Plan Condition: Stable Disposition: HOME Prescriptions: Doxycycline Hyclate 100 mg PO BID #14 tab Patient Education Materials: Upper Respiratory Infection (ED) Forms: *Work Release Referrals: Dimas Elizondo DO [Primary Care Provider] - 3 Days Additional Instructions: Your history and exam are consistent with a sinus infection with secondary bacterial conjunctivitis (pink eye) of the left eye. We will start you on an antibiotic to treat the infection. Take doxycycline 100 mg 1 tab twice a day for 7 days. We gave you the first dose in the emergency room. Drink plenty of fluids to avoid dehydration especially if you are running any fever. Use a saline rinse kit such as Neti Pot or NeilMed at least twice a day to help thin secretions and promote drainage of the sinuses. Use fluticasone (Flonase) nasal spray 2 sprays each nostril once daily. Use over the counter decongestant such as Sudafed to help with the congestion. Take over the counter acetaminophen (Tylenol) or ibuprofen (Advil, Motrin) according to directions as needed for pain or fever. Use salt water gargles several times a day if you have a sore throat. You may also use Chloraseptic spray or Cepacol lonzenges according to directions which contain a numbing medication and can provide some temporary relief from your sore throat. To avoid reinfection or spreading the eye infection: * Use washcloths and towels once then launder. * Do not share washcloths or towels with others. * Change your pillow case each morning until you have finished treatment. * You should throw out any eye makeup, especially mascara, and use a new one once you have finished treatment. Follow up with your primary care provider in 3-5 days if symptoms persist. Seek immediate medical attention in the emergency room if you have fever greater than 100.5 F despite taking acetaminophen or ibuprofen, have chest pain , difficulty breathing, are unable to swallow, or have any worsening of symptoms. - Billing Disposition and Condition Condition: STABLE Disposition: Home
[2018-09-03] MEDS ORDERED: DOXYcycline CAP(*) 100 MG PO ONE (00:58)
[2018-09-03 01:41] VITALS: BP 141/94
== END 2018-09-03 01:45 | disposition home or self-care (01) ==
LOC: ED 22:50
DX: J01.90 Acute sinusitis, unspecified (principal); H10.9 Unspecified conjunctivitis; Z87.891 Personal history of nicotine dependence
CPT/HCPCS: 99282; A9270-GY

== ENCOUNTER 2023-05-25 14:21 | Inpatient (IN) ==
[2023-05-25] MEDS: Morphine 4 MG/ML VIAL (1 ml) IV ONE ×3 (16:35→19:51)
[2023-05-25 16:48] LABS: ABS Basophils 0.1 10^3/uL (0.0-0.1); ABS Eosinophils 0.2 10^3/uL (0.0-0.5); ABS Lymphocytes 2.6 10^3/uL (1.0-4.8); ABS Neutrophils 6.2 10^3/uL (1.5-7.6); ABS Nucleated RBC 0.01 10^3/ul; Eosinophil % 1.7 %; Hematocrit 37.7 % (35-45); Hemoglobin 12.9 g/dL (11.5-14.3); Lymphocyte % 25.4 %; Mean Corpuscular Hemoglobin 31.4 pg (27-33); Mean Corpuscular Hgb Conc 34.2 g/dL (31-36); Mean Corpuscular Volume 91.7 fL (80-97); Mean Platelet Volume 8.9 fL (7.5-11.2); Nucleated Red Blood Cells % 0.1 %/100WBC (0.0-0.8); Platelet Count 264 10^3/uL (150-450); Red Blood Count 4.11 10^6/uL (3.63-4.92); Red Cell Distribution Width 13.3 % (12-17); White Blood Count 10.1 10^3/uL (3.8-11.8)
[2023-05-25 17:36] LABS: Albumin 4.4 g/dL (3.2-5.2); Albumin/Globulin Ratio 1.6 (1-3); Calcium 9.8 mg/dL (8.6-10.3); Creatinine, Serum 1.06 mg/dL (0.51-0.95); Globulin 2.7 g/dL (2-4); Total Bilirubin 0.2 mg/dL (0.2-1.0); Total Protein 7.1 g/dL (6.4-8.9); eGFR CKD-EPI 65.2 (>60)
[2023-05-25 17:44] LABS: Urine Appearance Clear; Urine Bilirubin Negative (Negative); Urine Blood 3+ (Negative); Urine Color Yellow; Urine Glucose Negative (Negative); Urine Ketones Trace (Negative); Urine Nitrite Negative (Negative); Urine Protein 1+ (>=30 mg/dL) (Negative); Urine Specific Gravity 1.036 (1.002-1.030); Urine Urobilinogen 1+ (Negative)
[2023-05-25 17:47] LABS: Urine Bacteria Absent /HPF (Absent); Urine Red Blood Cell 3+(>10/hpf) /HPF (0-Trace); Urine Squamous Epithelial Cell Present /HPF (Absent); Urine White Blood Cell 1+(6-10/hpf) /HPF (0-Trace)
[2023-05-25] MEDS: Lactated Ringers 1000 ml BAG 1,000 ML IV ONE (18:14)
[2023-05-25] MEDS: Iohexol 350 (CONTRAST) 500 ML MDV IV ONE (21:20)
[2023-05-25] MEDS: Ondansetron 4 mg VIAL 2 MG/ML 2 ml VIAL IV ONE (21:34)
[2023-05-25] MEDS: HYDROmorphone 0.5 MG/0.5 ML SYRINGE IV ONE (21:36)
[2023-05-25] MEDS: cefTRIAXone 2 gm/50 mL D5W 2 GM/50 ML BAG IV ONE (22:35)
[2023-05-25] MEDS ORDERED: Acetaminophen IV 1 GM/100ML 1,000 MG/100 ML BAG IV PRN (23:27)
[2023-05-25] MEDS ORDERED: Morphine 4 MG/ML VIAL (1 ml) IV PRN ×3 (23:29→23:39)
[2023-05-25] MEDS ORDERED: Ondansetron 4 mg VIAL 2 MG/ML 2 ml VIAL IV PRN (23:30)
[2023-05-25] MEDS ORDERED: Nicotine GUM 4MG FRUIT FLAVOR PO PRN (23:31)
[2023-05-25] MEDS: Ketamine HCL 50 mg/ml 10 ml VIAL (500 MG) IV ONE (23:37)
[2023-05-25] MEDS ORDERED: HYDROmorphone 1 MG/1 ML SYRINGE IV PRN (23:43)
[2023-05-25] MEDS ORDERED: Morphine 4 MG/ML VIAL (1 ml) IV SCH (23:45)
[2023-05-26] MEDS: Acetaminophen IV 1 GM/100ML 1,000 MG/100 ML BAG IV ONE (00:04)
[2023-05-26] MEDS: Lactated Ringers 1000 ml BAG 1,000 ML IV SCH (00:27)
[2023-05-26] MEDS: Lidocaine 1% VIAL 10 MG/ML 30 ML VIAL INJ ONE (00:32)
[2023-05-26] MEDS: Heparin 5000 UNITS/ML 1 mL VIAL SUBCUT ONE (01:58)
[2023-05-26 06:07] LABS: ABS Basophils 0.1 10^3/uL (0.0-0.1); ABS Eosinophils 0.2 10^3/uL (0.0-0.5); ABS Lymphocytes 2.8 10^3/uL (1.0-4.8); ABS Monocytes 0.9 10^3/uL (0.0-0.9); ABS Neutrophils 4.7 10^3/uL (1.5-7.6); Eosinophil % 2.4 %; Hematocrit 34.2 % (35-45); Hemoglobin 11.8 g/dL (11.5-14.3); Lymphocyte % 32.3 %; Mean Corpuscular Hemoglobin 31.5 pg (27-33); Mean Corpuscular Hgb Conc 34.5 g/dL (31-36); Mean Corpuscular Volume 91.3 fL (80-97); Mean Platelet Volume 8.6 fL (7.5-11.2); Platelet Count 238 10^3/uL (150-450); Red Blood Count 3.75 10^6/uL (3.63-4.92); Red Cell Distribution Width 13.9 % (12-17); White Blood Count 8.7 10^3/uL (3.8-11.8)
[2023-05-26 07:46] LABS: Calcium 8.6 mg/dL (8.6-10.3); Creatinine, Serum 1.12 mg/dL (0.51-0.95); Magnesium 1.7 mg/dL (1.9-2.7)
[2023-05-26] MEDS: Magnesium Sulfate 2 gm BAG 2 GM/50 ML BAG IVPB ONE (09:16)
[2023-05-26] MEDS: Lactated Ringers 1000 ml BAG 1,000 ML IV ONE (09:21)
[2023-05-26] MEDS ORDERED: Midazolam 2 mg/2 ml VIAL 1 mg/ml 2 ml VIAL (2 mg) ONE (11:24)
[2023-05-26] MEDS ORDERED: fentaNYL 100 mcg/2 ml 50 MCG/ML VIAL ONE ×2 (11:24→12:45)
[2023-05-26] MEDS ORDERED: Iohexol 180 (CONTRAST) 10 ML SDV IV ONE (12:05)
[2023-05-26] MEDS ORDERED: Dexamethasone IV 4 MG/ML VIAL 1 ml VIAL ONE (12:42)
[2023-05-26] MEDS ORDERED: Ondansetron 4 mg VIAL 2 MG/ML 2 ml VIAL ONE (12:42)
[2023-05-26] MEDS ORDERED: Lidocaine 2% PF 5 ML VIAL ONE (12:46)
[2023-05-26] MEDS ORDERED: Naloxone 0.4 mg VIAL 0.4 mg/ml 1 ml VIAL IV PRN (12:48)
[2023-05-26] MEDS ORDERED: fentaNYL 100 mcg/2 ml 50 MCG/ML VIAL IV PRN (12:48)
[2023-05-26 16:38] VITALS: BP 126/79
[2023-05-26] MEDS ORDERED: cefTRIAXone 1 gm/50 mL D5W 1 GM/50 ML BAG IV SCH (22:00)
== END 2023-05-26 17:40 | disposition home or self-care (01) | DRG 446 ==
LOC: ED 14:21 → EDHOLD 23:16 → SUATTDRO 23:16 → MED 05-26 00:32
PROVIDERS: ADMIT Internal Medicine; ATTEND Internal Medicine

== ENCOUNTER 2023-11-09 09:11 | Observation (INO) ==
[2023-11-09 11:53] LABS: Urine Appearance Clear; Urine Bilirubin Negative (Negative); Urine Blood 2+ (Negative); Urine Color Colorless; Urine Glucose Negative (Negative); Urine Ketones Negative (Negative); Urine Nitrite Negative (Negative); Urine Protein Negative (Negative); Urine Specific Gravity 1.005 (1.002-1.030); Urine Urobilinogen Negative (Negative); Urine pH 6.5 (5.0-8.0)
[2023-11-09 12:10] LABS: Urine Bacteria Absent /HPF (Absent); Urine Red Blood Cell 1+(3-5/hpf) /HPF (0-Trace); Urine Squamous Epithelial Cell Present /HPF (Absent); Urine White Blood Cell Trace(0-5/hpf) /HPF (0-Trace)
[2023-11-09 12:31] LABS: ABS Basophils 0.1 10^3/uL (0.0-0.1); ABS Eosinophils 0.2 10^3/uL (0.0-0.5); ABS Lymphocytes 3.3 10^3/uL (1.0-4.8); ABS Monocytes 1.1 10^3/uL (0.0-0.9); ABS Neutrophils 5.6 10^3/uL (1.5-7.6); ABS Nucleated RBC 0.01 10^3/ul; Hematocrit 41.9 % (35-45); Hemoglobin 14.3 g/dL (11.5-14.3); Mean Corpuscular Hemoglobin 31.5 pg (27-33); Mean Corpuscular Hgb Conc 34.3 g/dL (31-36); Mean Corpuscular Volume 92.1 fL (80-97); Mean Platelet Volume 9.1 fL (7.5-11.2); Nucleated Red Blood Cells % 0.1 %/100WBC (0.0-0.8); Platelet Count 278 10^3/uL (150-450); Red Blood Count 4.55 10^6/uL (3.63-4.92); Red Cell Distribution Width 15.3 % (12-17); White Blood Count 10.3 10^3/uL (3.8-11.8)
[2023-11-09 13:34] LABS: Albumin 4.8 g/dL (3.2-5.2); Albumin/Globulin Ratio 1.7 (1-3); Calcium 9.6 mg/dL (8.6-10.3); Creatinine, Serum 0.85 mg/dL (0.51-0.95); Globulin 2.9 g/dL (2-4); Potassium 4.1 mmol/L (3.5-5.0); Total Bilirubin 0.2 mg/dL (0.2-1.0); Total Protein 7.7 g/dL (6.4-8.9)
[2023-11-09 13:39] LABS: High Sensitivity Troponin 1 Hr 4 pg/mL (<15)
[2023-11-09 13:42] LABS: TSH Ultra Thyroid Stim Horm 1.76 mcIU/mL (0.34-5.60)
[2023-11-09] MEDS ORDERED: Senna TAB 8.6 mg TAB PO PRN (16:17)
[2023-11-09] MEDS ORDERED: Ondansetron 4 mg VIAL 2 MG/ML 2 ml VIAL IV PRN (16:17)
[2023-11-09] MEDS ORDERED: Nicotine Lozenge mini 2 MG LOZNG.MINI MT PRN (17:09)
[2023-11-09] MEDS: Enoxaparin 40 MG/0.4 ML SYR SUBCUT SCH (17:17)
[2023-11-09 20:08] LABS: C Reactive Protein 3.42 mg/L (<8.01)
[2023-11-10 06:19] LABS: ABS Basophils 0.1 10^3/uL (0.0-0.1); ABS Eosinophils 0.2 10^3/uL (0.0-0.5); ABS Lymphocytes 3.5 10^3/uL (1.0-4.8); ABS Monocytes 0.7 10^3/uL (0.0-0.9); ABS Neutrophils 3.1 10^3/uL (1.5-7.6); Eosinophil % 2.7 %; Hemoglobin 12.7 g/dL (11.5-14.3); Lymphocyte % 46.2 %; Mean Corpuscular Hemoglobin 30.7 pg (27-33); Mean Corpuscular Hgb Conc 33.5 g/dL (31-36); Mean Corpuscular Volume 91.9 fL (80-97); Mean Platelet Volume 8.9 fL (7.5-11.2); Platelet Count 237 10^3/uL (150-450); Red Blood Count 4.14 10^6/uL (3.63-4.92); Red Cell Distribution Width 15.1 % (12-17); White Blood Count 7.6 10^3/uL (3.8-11.8)
[2023-11-10 06:33] LABS: Calcium 9.4 mg/dL (8.6-10.3); Creatinine, Serum 0.92 mg/dL (0.51-0.95); Magnesium 1.8 mg/dL (1.9-2.7); Potassium 4.1 mmol/L (3.5-5.0); eGFR CKD-EPI 77.3 (>60)
[2023-11-10] MEDS: Magnesium Sulfate IV 1GM/100ML 1 GM/100 ML BAG IV ONE (09:05)
[2023-11-10] MEDS ORDERED: Aminophylline 25 MG/ML VIAL ONE (10:47)
[2023-11-10] MEDS ORDERED: Regadenoson 0.4 MG/5 ML SYRINGE ONE (10:47)
[2023-11-10] MEDS ORDERED: Lidocaine PATCH 5% PATCH TRANSDERM SCH (14:00)
[2023-11-10 14:36] VITALS: BP 112/62
[2023-11-11 22:55] LABS: Anaplasma phagocytophilum Negative (Negative); B. miyamotoi PCR, B Negative (Negative); Babesia divergens/MO-1 Negative (Negative); Babesia ducani Negative (Negative); Ehrlichia chaffeensis Negative (Negative); Ehrlichia ewingii/canis Negative (Negative); Ehrlichia muris eauclairensis Negative (Negative)
== END 2023-11-10 16:15 | disposition home or self-care (01) ==
LOC: ED 09:11 → EDHOLD 09:11 → SUATTDRO 16:21 → MEDTELE 19:10
PROVIDERS: ADMIT Hospitalist; ATTEND Student in an Organized Health Care Education/Training Program